=== PATIENT | female | born 1965 | race Caucasian/White ===

== ENCOUNTER → 2023-08-18 15:45 | Outpatient (REF) | payer OTHER, SELFPAY | LOC: WDC 15:45 | PROVIDERS: ATTENDING PHYSICIAN Surgery; FAMILY PHYSICIAN Nurse Practitioner | DX: Z12.31 Encounter for screening mammogram for malignant neoplasm of breast (principal) | CPT/HCPCS: 77063; 77067 ==

== ENCOUNTER → 2023-09-15 13:59 | Outpatient (REF) | payer OTHER, SELFPAY | LOC: HWRAD 13:59 | PROVIDERS: ATTENDING PHYSICIAN Nurse Practitioner Adult Health; FAMILY PHYSICIAN Family Medicine | DX: N95.0 Postmenopausal bleeding (principal) | CPT/HCPCS: 76830; 76856 ==

== ENCOUNTER → 2024-11-19 18:42 | Outpatient (REF) | payer OTHER, SELFPAY | LOC: MRI 3T 18:42 | PROVIDERS: ATTENDING PHYSICIAN Surgery; FAMILY PHYSICIAN Nurse Practitioner | DX: C50.912 Malignant neoplasm of unspecified site of left female breast (principal); Z17.0 Estrogen receptor positive status [ER+] | CPT/HCPCS: 77049; A9585 ==

== ENCOUNTER → 2024-12-06 14:36 | Outpatient (REF) | payer OTHER, SELFPAY | LOC: WDC 14:36 | PROVIDERS: ATTENDING PHYSICIAN Surgery | DX: N63.20 Unspecified lump in the left breast, unspecified quadrant (principal); R92.8 Other abnormal and inconclusive findings on diagnostic imaging of breast | CPT/HCPCS: 76642 ==

== ENCOUNTER → 2024-12-11 08:23 | Outpatient (REF) | payer OTHER, SELFPAY ==
--- NOTE | 2024-12-11 15:58 | OID.BR.INTR ---
[facility] Breast Navigator - Initial
- -
Date of Contact: 12/11/24
Met with patient. Patient given written information on navigator services available at [facility]. Will follow up as needed per protocol.
== END ==
LOC: WDC 08:23
PROVIDERS: ATTENDING PHYSICIAN Surgery
DX: N63.23 Unspecified lump in the left breast, lower outer quadrant (principal); N63.32 Unspecified lump in axillary tail of the left breast
CPT/HCPCS: 19083; 19084; 88305; 88341; 88342; 88360; A4648

== ENCOUNTER → 2024-12-25 10:25 | Outpatient (REF) | payer OTHER, SELFPAY | LOC: RAD 10:25 | PROVIDERS: ATTENDING PHYSICIAN Surgery; FAMILY PHYSICIAN Physician Assistant Medical | DX: C50.912 Malignant neoplasm of unspecified site of left female breast (principal) | CPT/HCPCS: 71260; 74177; 78306; A9503; Q9967 ==

== ENCOUNTER → 2025-01-23 12:38 | Outpatient (REF) | payer OTHER, SELFPAY | LOC: RAD 12:38 | PROVIDERS: ATTENDING PHYSICIAN Surgery Plastic and Reconstructive Surgery; FAMILY PHYSICIAN Nurse Practitioner | DX: Z01.810 Encounter for preprocedural cardiovascular examination (principal) | CPT/HCPCS: 93005 ==

== ENCOUNTER 2025-01-31 07:42 | Inpatient (IN) | payer OTHER, SELFPAY ==
[2025-01-31] VITALS (24 sets, daily range): BP systolic 5–124; BP diastolic 34–67; BMI 25.3
[2025-01-31] MEDS: NORMOSOL-R/PLASMALYTE-A 1000 IV (08:11)
[2025-01-31] MEDS: EMEND 40 MG PO (08:29)
--- NOTE | 2025-01-31 09:00 | W.SUR.PREOP ---
Pre-Operative Surgical Note
-
I have examined this patient prior to the performance of the scheduled procedure.
The patient's condition is unchanged from the time of the current History and
Physical and the patient is able to undergo the scheduled procedure.
[2025-01-31 09:04] LABS: Prealbumin (Transthyretin) 26.1 mg/dl (17.6-36.0)
[2025-01-31] MEDS: LOVENOX 40 MG SC (09:22)
--- NOTE | 2025-01-31 13:09 | W.IMMPOSTOP ---
Surgical Immed Post Op Note
-
Primary Surgeon: Eugenia
Assisting Surgeon: None
Pre-op Diagnosis: Recurrent left breast ca
Post-op Diagnosis: Recurrent left breast ca
Procedure Performed: Bilateral nipple-sparing mastectomies
Anesthesia Type: GET
Specimen / Cultures: Bilateral breasts
Estimated Blood Loss: 25cc
Complications: None
Operative Findings: None
--- NOTE | 2025-01-31 13:10 | OR.RPT ---
Operative Report
Operative Report
Date of Procedure: 01/31/25
Surgeon: Eugenia
Pre-Operative DX: Recurrent left breast ca
Post-Operative DX: Recurrent left breast ca
Procedure: Bilateral nipple-sparing mastectomies
The patient is a 60-year-old female with a prior history of left breast carcinoma treated with breast conservation and postoperative radiotherapy who developed a recurrence and presents now for bilateral nipple sparing mastectomies. There was no
indication for axillary surgical sampling as that had been performed previously with her initial surgery and there were no suspicious lymph nodes by imaging or palpation.
On the day of the procedure the patient presented to the same-day surgical services unit. She was prepped and she verified site and procedure. DVT and antibiotic prophylaxis were provided. She was taken to the operating room and in the supine
position general anesthesia was induced. Fajardo catheter was inserted using aseptic technique. Both breasts and chest were prepped and draped in the usual sterile fashion. An appropriate timeout procedure was performed by all staff members.
I began on the right side and using the blade made an incision in the inframammary fold as marked by plastic surgery. The breast was lifted off the chest wall using the PlasmaBlade and a lighted retractor. And the larger vessels were controlled
with 3-0 silk tie or suture ligature. Then the oncoplastic plane was developed elevating the skin and subcutaneous tissue off the underlying breast tissue again using a PlasmaBlade. Care was taken not to devascularize the tissue while balancing
complete removal of breast tissue as much as possible. This breast was taken off superiorly to inferiorly and time out of body was noted. The specimen was oriented for the pathologist and sent for pathologic examination. We then moved to the left
side and in the same fashion the left breast was removed oriented and sent to pathology. Plastic surgery had entered to begin the reconstructive portion on the right and will proceed with reconstruction and closure. All sponge needle and
instrument counts were correct at this point. Blood loss was 25 cc.
([id number])
--- NOTE | 2025-01-31 15:13 | W.IMMPOSTOP ---
Surgical Immed Post Op Note
-
Primary Surgeon: GUILHERME Fonseca MD
Assisting Surgeon:
Pre-op Diagnosis: Breast CA, recurrent
Post-op Diagnosis: Same
Procedure Performed: Immediate breast reconstruction with tissue expanders, ADM mesh insertion
Anesthesia Type: GA
Specimen / Cultures: Per Dr. Bello
Estimated Blood Loss: 25cc
Complications: None
Operative Findings: As expected
--- NOTE | 2025-01-31 15:14 | OR.RPT ---
Operative Report
Operative Report
Date of Surgery: 01/31/2025
Surgeon: GUILHERME Fonseca MD
Preoperative Diagnosis:
1. History of left breast cancer
2. History of radiation
3. Recurrent left breast cancer
Postoperative Diagnosis: Same
Procedure:
1. Bilateral immediate breast reconstruction with prepectoral tissue expanders
2. Total anterior coverage technique for ADM wrap
Complications: None
Anesthesia: General
EBL: 25cc
Sqe size: 13 cm
Indications for procedure: Patient was referred to me by Dr. Bello with a recent diagnosis of breast cancer. She was planned to undergo bilateral mastectomy. We discussed her options for breast reconstruction at length including implant based
and autologous options. The patient opted for immediate reconstruction with tissue expanders. She understands that the final reconstruction will be staged. We also discussed the use of ADM and spy angiography. Risks include reconstructive
failure, capsular contracture, infection, delayed wound healing, mastectomy skin flap necrosis, hematoma, seroma and need for repeat procedure. Patient understood these risks and desired to proceed. Consents were signed accordingly.
Procedure in detail: Patient was identified the preoperative area and the surgical site was confirmed to be the bilateral breast. All questions were answered and consents were confirmed. Patient was then sat upright and normal anatomical landmarks
were marked including midline and inframammary fold. Patient was then taken back to the operating room placed supine on the table. She was prepped and draped in the usual sterile fashion using ChloraPrep solution. A Fajardo catheter was placed. A
timeout for patient safety was performed was confirmed that bilateral SCDs were in place and preoperative antibiotics administered. The procedure began with Dr. Bello first performing the mastectomy. Her op report will be dictated separately.
When I entered the procedure, the first sided mastectomy had been completed. As such I inspected the wound bed of the chest wall and ensured meticulous hemostasis. The base width was measured and appropriate tissue rn recovery was selected. Two 6 x
16 sheets of Cortiva ADM were soaked in dilute Betadine solution and passed through the skin graft mesher on carrier of 1-1.5. This construct was then draped around the tissue rn recovery in a total anterior coverage technique. The rn recovery ADM
construct was then sutured to the chest wall with a series of 2-0 silk sutures. Pectoralis and intercostal blocks were performed with Marcaine. 2 drains were then placed in the preaxial area line with a long subcutaneous tunnel and sutured in
place with 2-0 Prolene sutures. The wound was irrigated with double antibiotic solution and dilute Betadine. The mastectomy incisions were then closed with a series of 3-0 Vicryl's in the deep subcutaneous tissues followed by 3-0 and 4-0
Monocryl's in the deep dermis and superficial skin.
Attention was then placed on the contralateral side after completion of the mastectomy. The exact same procedure was performed. An rn recovery of the same size was opened and 2 sheets of ADM were soaked in Betadine, meshed, and draped around the
anterior surface of the rn recovery in a total anterior coverage technique. The construct was then sutured to the chest wall using 2-0 silks. Pectoralis and intercostal blocks were performed. Meticulous hemostasis was ensured and the wound was
irrigated with combination of double antibiotic solution consisting of Ancef and gentamicin as well as dilute Betadine. The wound was closed in layers with 3-0 Vicryl followed by 3-0 Monocryl and 4-0 Monocryl superficial skin.
The wounds were dressed accordingly and a supportive bra was placed. The patient was extubated taken to the PACU for further care. All counts were correct at the end the case, and it was performed out complication.
--- NOTE | 2025-01-31 16:03 | W.DCSUMMARY ---
Discharge Summary
Discharge Data
Date of Admission: 01/31/25
Date of Discharge: 02/01/25
-
Pending Results: No
Hospital Course
Admitted following bilateral mastectomy and immediate reconstruction with tissue expanders. Routine postoperative course. Discharged pod1 with closure surgical follow up and VN.
Discharge Plan
-
Patient Disposition: Home with Home Care
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
Condition: Good
Diet: Regular
Activity: No strenuous activity
Additional Activity: T jaron arms for ROM, no heavy lifting > 10 lbs
Driving Restrictions: Not until seen by your Dr
Bathing Restrictions: OK to Shower
Other Services: VN
Wound Care: Strip and record drain outputs twice daily, compression bra, Dressings will be removed in office on monday
Referrals:
UNKNOWN - PT DOES,NOT KNOW [Family Provider]
Prescriptions:
New
tramadol 50 mg Tablet
50 mg PO Q6HPRN PRN (Reason: severe pain) 14 Days Qty: 20 0RF
acetaminophen [Tylenol Extra Strength] 500 mg Tablet
1,000 mg PO Q6 30 Days Qty: 240 0RF
gabapentin 100 mg Capsule
300 mg PO TID 30 Days Qty: 270 3RF
diazepam 5 mg Tablet
5 mg PO TID 14 Days Qty: 42 0RF
cefadroxil 500 mg capsule
500 mg PO BID Qty: 42 0RF
Continued
estradiol 0.01 % (0.1 mg/gram) Cream
1 g VAGINAL .4X WEEK
cholecalciferol (vitamin D3) [Vitamin D3] 50 mcg (2,000 unit) Tablet
50 mcg PO DAILY
cyanocobalamin (vitamin B-12) [Vitamin B-12] 5,000 mcg Tablet, Sublingual
5,000 mcg SUBLINGUAL DAILY
testosterone 1.62 % (20.25 mg/1.25 gram) Gel In Packet
1 packet TRANSDERMAL .4X WEEK
ashwagandha extract 500 mg Capsule
1,000 mg PO DAILY
magnesium glycinate 120 mg Capsule
240 mg PO HS
Patient Comments:
Malate
[place] Peptide
1 dose PO DAILY
creatine monohydrate
5 g PO DAILY
Held
omega 3-[id number]-[id number]-fish oil [Fish Oil] 1,200 (144-216) mg Capsule
1 cap PO DAILY
Hold Instructions: Resume on 02/12/25.
Discharge Orders:
Discharge Patient (As Directed); Ordered 02/01/25
Ordered By: Tonja Bello
Discharge Date and Time
Discharge Date/Time: 02/01/25 12:55
Print Language: MACEDONIAN
--- NOTE | 2025-01-31 16:39 | CM ---
Patient seen immediately post operatively. CM confirmed VN choice of [facility]. [facility] Admission RN made aware.
PLAN: Home with [facility].
[2025-01-31] MEDS: VALIUM 5 MG PO (17:00)
[2025-01-31] MEDS: TYLENOL 1000 MG PO (17:02)
[2025-01-31] MEDS: NEURONTIN 300 MG PO ×2 (17:02→21:29)
[2025-01-31] MEDS: ANCEF 5 IV (21:29)
[2025-02-01] MEDS: VALIUM PO (00:18)
[2025-02-01] MEDS: TYLENOL 1000 MG PO ×3 (01:24→11:07)
[2025-02-01 03:00] VITALS: BP 93/46
[2025-02-01] MEDS: ANCEF 5 IV (05:59)
[2025-02-01 06:25] LABS: Hematocrit 33.8 % (37.0-47.0); Hemoglobin 11.5 g/dL (12.0-16.0)
[2025-02-01 06:50] LABS: Blood Urea Nitrogen 16 mg/dl (7-17); Calcium 8.6 mg/dl (8.4-10.2); Carbon Dioxide 26 mmol/L (22-30); Chloride 105 mmol/L (98-107); Estimated Creatinine Clearance 70 ml/min; Glucose 102 mg/dl (70-99); Potassium 4.1 mmol/L (3.5-5.1); Sodium 135 mmol/L (135-145); eGFR > 60.00
[2025-02-01 07:45] VITALS: BP 91/50
[2025-02-01] MEDS: NEURONTIN 300 MG PO (08:40)
[2025-02-01] MEDS: VALIUM 5 MG PO (08:40)
--- NOTE | 2025-02-01 08:41 | W.PN.UPDATE ---
Update Note
Progress Note Update
The patient is a 60 Y/O female S/P bilateral nipple sparing mastectomies for recurrent left breast cancer. She also underwent immediate implant-based reconstruciton with Dr. Fonseca. She is doing well and eating breakfast. Pain well-controlled. PT's
BP in the 90's systolic but she runs low. She is asymptomatic and valium should not have been held. Ok for D/C with VNA in place. To see Dr. Fonseca next week and myself the following week. Pathology pending.
--- NOTE | 2025-02-01 08:45 | W.DS.TRANS ---
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
-
Discharge Instructions:
Sleep Apnea Risk Low
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
Diet Regular
Activity No strenuous activity
Additional Activity T jaron arms for ROM, no heavy lifting > 10 lbs
Driving Restrictions Not until seen by your Dr
Bathing Restrictions OK to Shower
Other Services VN
Wound Care Strip and record drain outputs twice daily,
compression bra, Dressings will be removed in
office on monday
Instructions:
Stand-Alone Forms:
Changes to Home Medications: No
Discharge Medications:
DC Medications w/original date entered in [facility]
Collegan Peptide 1 dose PO DAILY Supplement 01/24/25
ashwagandha extract 500 mg capsule 1,000 mg PO DAILY Supplement 01/24/25
cholecalciferol (vitamin D3) 50 mcg (2,000 unit) tablet (Vitamin D3) 50 mcg PO DAILY Supplement 01/24/25
creatine monohydrate 5 g PO DAILY Supplement 01/24/25
cyanocobalamin (vitamin B-12) 5,000 mcg sublingual tablet (Vitamin B-12) 5,000 mcg sublingual DAILY Supplement 01/24/25
estradiol 0.01% (0.1 mg/gram) vaginal cream 1 g vaginal .4X WEEK Hormonal Agent 01/24/25
magnesium glycinate 120 mg (as glycinate) capsule 240 mg PO HS Supplement 01/24/25
omega 8-mvx-sar-fish oil 1,200 mg (144 mg-216 mg) capsule (Fish Oil) 1 cap PO DAILY Supplement 01/24/25
Held on 01/31/25. Instructions: Resume on 02/12/25.
testosterone 1.62 % (20.25 mg/1.25 gram) transdermal gel packet 1 packet transdermal .4X WEEK Hormonal Agent 01/24/25
acetaminophen 500 mg tablet (Tylenol Extra Strength) 1,000 mg (2 x 500 mg) PO Q6 30 days #240 tabs 01/31/25
cefadroxil 500 mg capsule 500 mg PO BID #42 caps 01/31/25
diazepam 5 mg tablet 5 mg PO TID 14 days #42 tabs 01/31/25
gabapentin 100 mg capsule 300 mg (3 x 100 mg) PO TID 30 days #270 caps 01/31/25
tramadol 50 mg tablet 50 mg PO Q6HPRN PRN severe pain 14 days #20 tabs 01/31/25
Home Medication Changes
Pending Results: Yes (pathology)
Total time spent discharging patient (in min): 15
[2025-02-01 11:40] VITALS: BP 100/55
--- NOTE | 2025-02-01 13:26 | CM ---
Pt for dc today with [facility].
No additional needs identified.
== END 2025-02-01 12:55 | disposition home health service (06) | DRG 583 ==
LOC: 2 SOUTH 07:42
PROVIDERS: Surgery Plastic and Reconstructive Surgery; ADMITTING PHYSICIAN Surgery
PROC: 0HTV0ZZ Resection of Bilateral Breast, Open Approach (ICD-10-PCS; 2025-01-31)
PROC: 0HHV0NZ Insertion of Tissue Expander into Bilateral Breast, Open Approach (ICD-10-PCS; 2025-01-31)
DX: C50.412 Malignant neoplasm of upper-outer quadrant of left female breast (principal); Z92.3 Personal history of irradiation; Z17.0 Estrogen receptor positive status [ER+]
CPT/HCPCS: 80048; 82652; 84134; 85014; 85018; 88307; 88341; 88342; 97161; A4648; C1789; L8000; Q4100